=== PATIENT | female | born 1990 | race Caucasian/White ===

== ENCOUNTER → 2021-03-08 12:40 | Outpatient (BNVA) | payer OTHER, SELFPAY | PROVIDERS: Visit Provider Advanced Practice Midwife ==

== ENCOUNTER → 2021-03-15 08:50 | Outpatient (BNVA) | payer OTHER, SELFPAY | PROVIDERS: Visit Provider Advanced Practice Midwife | DX: Z30.42 Encounter for surveillance of injectable contraceptive (principal) | CPT/HCPCS: 96372; 99211 ==

== ENCOUNTER 2024-08-20 17:10 | Emergency (ER) | payer OTHER, SELFPAY ==
--- OUTSIDE RECORDS SUMMARY | 2024-08-20 17:13 | XMS_ITS | Continuity of Care Document ---
Author Organization [facility] Address [address], [address] [place] [address] Phone Care Team Providers Care Microfilm Processor Name Role Phone Unavailable Unavailable Unavailable Allergies, Adverse Reactions, Alerts Substance Reaction Status Criticality No Known Allergies Active No Inform ation Procedures Procedure Date Urine OFFICE/OUTPATIENT VISIT, [facility] Advance Directives Directive Yes / No Effective Date File Name No Information Encounters Encounter Description Practice Location Reason(s) For Visit Diagnoses Date Provider [facility], [address], [address], [place], [id number], tel:[phone] No Information 2021 No Information OFFICE/OUTPATI ENT VISIT, [facility], [address], [address], [place], [id number], tel:[phone] confirmation (chief complaint) Encounter for test, result unknown 2021 No Information Family History Family Member Type Diagnosis Age At Onset Mother Problem hypertension Payers Payer name Insurance type Covered green party ID Authoriza tion(s) No Information Social History Type Description Quantity Date Captured Comments Alcohol Use Details Unknown Caffeine Use Details Unknown Tobacco Use Status No Information Smoking Status No Information Sex Female Chief Complaint And Reason For Visit No Information History Of Present Illness Encounter Date Complaint History Of Prese nt Illness confirmation 31yo patient is present today for confirmationLMP 10/14/21OBHx: x2 - no complications.PMH; negMeds: nonesurghx: [id number]: cigarette smokerSTDhx: negNo plans to breastfeed Instructions Date Instruction Additional Infor mation No Information Assessments Type Assessment Date No Information
--- OUTSIDE RECORDS SUMMARY | 2024-08-20 18:18 | XMS_ITS | Continuity of Care Document ---
Author Organization [facility] Address [address], [address] [place] [address] Phone Care Team Providers Care Hat And Cap Parts Cutter Hand Name Role Phone Unavailable Unavailable Unavailable Allergies, Adverse Reactions, Alerts Substance Reaction Status Criticality No Known Allergies Active No Inform ation Procedures Procedure Date Urine OFFICE/OUTPATIENT VISIT, [facility] Advance Directives Directive Yes / No Effective Date File Name No Information Encounters Encounter Description Practice Location Reason(s) For Visit Diagnoses Date Provider [facility], [address], [address], [place], [id number], tel:[phone] [address] No Information 2021 No Information OFFICE/OUTPATI ENT VISIT, [facility], [address], [address], [place], [id number], tel:[phone] confirmation (chief complaint) Encounter for test, result unknown 2021 No Information Family History Family Member Type Diagnosis Age At Onset Mother Problem hypertension Payers Payer name Insurance type Covered democrat ID Authoriza tion(s) No Information Social History [...] 10/14/21OBHx: x2 - no complications.PMH; negMeds: nonesurghx: [id number]: cigarette smokerSTDhx: negNo plans to breastfeed Instructions Date Instruction Additional Infor mation No Information Assessments Type Assessment Date No Information
== END 2024-08-20 18:21 | disposition left against medical advice (07) ==
PROVIDERS: Emergency Provider Emergency Medicine
DX: H57.11 Ocular pain, right eye (principal); Z53.21 Procedure and treatment not carried out due to patient leaving prior to being seen by health care provider

== ENCOUNTER 2024-10-08 15:44 | Outpatient (REF) | payer MEDICAID, SELFPAY ==
[2024-10-08 16:03] LABS: MANUAL DIFF FLAG NO
[2024-10-08 16:53] LABS: Basophils Percent Auto 0.4 % (0-2); Eosinophils Absolute Auto 0.2 X10*3/uL (0.0-0.4); Hematocrit 37.3 % (37.0-47.0); Hemoglobin 12.6 g/dl (12.0-16.0); Imm Gran Abs Auto 0.02 X10*3/uL (0.00-0.03); Imm Gran Pct Auto 0.4 % (0.0-0.4); Lymphocytes Absolute Auto 2.2 X10*3/uL (1.2-4.9); Lymphocytes Percent Auto 43.7 % (20-40); Mean Corpuscular HGB Conc 33.8 g/dl (31.0-35.0); Mean Corpuscular Hemoglobin 32.2 pg (27.0-33.0); Mean Corpuscular Volume 95.4 fL (80.0-98.0); Mean Platelet Volume 10.9 fL (9.4-12.3); Monocytes Absolute Auto 0.7 X10*3/uL (0.1-1.2); Monocytes Percent Auto 13.2 % (2-11); Neutrophils Absolute Auto 1.9 x10*3/uL (2.0-8.3); Neutrophils Percent Auto 38.3 % (45-73); Platelet Count 167 X10*3/uL (160-400); Red Blood Count 3.91 X10*6/uL (4.20-5.50); Red Cell Distribution Width 12.8 % (11.0-16.0)
[2024-10-08 17:30] LABS: Rheumatoid Factor < 13.0 IU/mL (<15.0)
[2024-10-08 17:40] LABS: Erythrocyte Sedimentation Rate 7 MM/HR (0-20)
[2024-10-08 18:55] LABS: Alanine Aminotransferase 14 U/L (0-31); Albumin Level 4.4 g/dL (3.5-5.0); Alkaline Phosphatase 48 U/L (39-117); Anion Gap 11 (12-20); Aspartate Amino Transferase 21 U/L (5-31); Bilirubin Total 0.4 mg/dL (0.0-1.0); Blood Urea Nitrogen 16 mg/dL (9-16); Calcium 9.3 mg/dL (8.4-10.2); Carbon Dioxide 25 mmol/L (22-29); Chloride 107 mmol/L (96-108); Estimated Glomerular Filt Rate > 60; Glucose Random 85 mg/dL (60-115); Potassium 3.9 mmol/L (3.3-5.1); Sodium 139 mmol/L (135-145); TSH reflex Free T4 0.68 uIU/mL (0.32-4.0); Total Protein 7.9 g/dL (6.5-8.0)
--- OUTSIDE RECORDS SUMMARY | 2024-10-08 19:23 | XMS_ITS | Clinical Summary ---
Author Organization [facility] Address [address] [place] [address] Care Team Providers Care Peanut Roaster Name Role Phone Hal Kennedy MD Primary Care Provider Surgical History Surgery Date Site/Laterality Comments SECTION PROCEDURE: HISTORICAL DELIVERY; COMMENT: 2016, and 2018 c/s's. Medical History Medical History Date Comments Rh negative state in antepar indy period, third trimester DX:Rh negative state in ante period, third trimester Family History Medical History Relation Name Comments Asthma Brother 1 No Known Problems Brother 2 Asthma Father Hypertension Father Arthritis Mother Hypertension Mother Osteoporosis Mother Stomach cancer Other mataernal cousin Relation Name Status Comments Brother 1 Alive Brother 2 Alive Father Alive Maternal Grandfather Maternal Grandmother Mother Alive Other mataernal cousin Alive Paternal Grandfather Paternal Grandmother Social History Tobacco Use Types Packs/Day Years Used Date Smoking Tobacco: Former Smokeless Tobacco: Never Alcohol Use Standard Drinks/Week Comments Not Currently 0 (1 standard drink = 0.6 oz pur e alcohol) Sex and Gender Information Value Date Recorded Sex Assigned at Not on file Gender Identity Not on file Sexual Orientation Not on file Obstetrics History Last Filed Vital Signs Vital Sign Reading Time Taken Comments Blood Pressure 120/79 07/25/2022 1:51 PM EST Pulse 73 07/25/2022 1:51 PM EST Temperature - - Respiratory Rate - - Oxygen Saturation - - Inhaled Oxygen Concentration - - Weight 74.4 kg (164 lb) 07/25/2022 1:51 PM EST Height 160 cm (5' 3 ) 05/02/2022 1:46 PM EDT Body Mass Index 29.05 05/02/2022 1:46 PM EDT Plan of Treatment Health Maintenance Due Date Last Done Comments Hepatitis B Vaccines (1 of 3 - 19+ 3-dose series) 2011 Cervical Cancer Screening: P ap Smear 2013 Depression Screening 08/19/2022 HIV Screening 08/19/2022 Hepatitis C Screening 08/19/2022 Social Influencers of Health Screening 08/19/2022 COVID-19 Vaccine (1 - 2023-2 5 season) 2024 Influenza Vaccine (#1) 2024 2, 06/18/2017 DTaP,Tdap,and Td Vaccines (2 - Td or Tdap) 05/28/2032 05/28/2022 HIB Vaccines Aged Out No longer eligi ble based on patient's age to complete this topic HPV Vaccines Aged Out No longer eligi ble based on patient's age to complete this topic Hepatitis A Vaccines Aged Out No long er eligible based on patient's age to complete this topic IPV Vaccines Aged Out No longer eligi ble based on patient's age to complete this topic MMR Vaccines Aged Out No longer eligi ble based on patient's age to complete this topic Meningococcal ACWY Vaccine Aged Out N o longer eligible based on patient's age to complete this topic Pneumococcal Vaccine: Pediatrics (0 to 5 Years) and At-Risk Patients (6 to 64 Years) Aged Out No longer eligible b ased on patient's age to complete this topic RSV Immunization Patients Under 20 months Aged Out No longer eligible b ased on patient's age to complete this topic Varicella Vaccines Aged Out No longer eligible based on patient's age to complete this topic Care Teams Peanut Roaster Relationship Specialty Start Date End Date Hal Kennedy MD [address] [place] [address] Dr [address] DEBBIE Chawla PCP - General 09/27/22
[2024-10-17 10:34] LABS: Hu Antibody Screen, IFA Serum NEGATIVE (NEGATIVE)
== END 2024-10-08 15:45 | disposition home or self-care (01) ==
LOC: HO.LAB 15:44
PROVIDERS: PCP Internal Medicine; Visit Provider Internal Medicine
DX: Z00.01 Encounter for general adult medical examination with abnormal findings (principal); Z13.31 Encounter for screening for depression; M13.0 Polyarthritis, unspecified; R63.4 Abnormal weight loss
CPT/HCPCS: 36415; 80053; 84181; 84443; 85025; 85652; 86255; 86256; 86431

== ENCOUNTER 2025-02-04 12:14 | Outpatient (REF) | payer MEDICAID, SELFPAY ==
--- OUTSIDE RECORDS SUMMARY | 2025-02-04 12:17 | XMS_ITS | Continuity of Care Document ---
Author Organization [facility] Address [address], [address] [place] [address] Phone Care Team Providers Care Disability Hearing Officer Name Role Phone Unavailable Unavailable Unavailable Allergies, Adverse Reactions, Alerts Substance Reaction Status Criticality No Known Allergies Active No Inform ation Procedures Procedure Date Urine OFFICE/OUTPATIENT VISIT, [facility] Advance Directives Directive Yes / No Effective Date File Name No Information Encounters Encounter Description Practice Location Reason(s) For Visit Diagnoses Date Provider [facility], [address], [address], [place], [id number], tel:[phone] [place] [address] No Information 2021 No Information OFFICE/OUTPATI ENT VISIT, [facility], [address], [address], [place], [id number], tel:[phone] [place] [address] confirmation (chief complaint) Encounter for test, [...] 10/14/21OBHx: x2 - no complications.PMH; negMeds: nonesurghx: [id number]: cigarette smokerSTDhx: negNo plans to breastfeed Instructions Date Instruction Additional Infor mation No Information Assessments Type Assessment Date No Information
[2025-02-08 11:14] LABS: Anti Nuclear Antibody Screen NEGATIVE (NEGATIVE)
== END 2025-02-04 12:15 | disposition home or self-care (01) ==
LOC: HO.LAB 12:14
PROVIDERS: PCP Internal Medicine; Visit Provider Internal Medicine
DX: M13.0 Polyarthritis, unspecified (principal); R63.4 Abnormal weight loss
CPT/HCPCS: 36415; 86038

== ENCOUNTER 2025-05-05 10:02 | Outpatient (REF) | payer MEDICAID, SELFPAY ==
--- OUTSIDE RECORDS SUMMARY | 2025-05-05 10:53 | XMS_ITS | Clinical Summary ---
Author Organization [facility] Address [address] [place] [address] Care Team Providers Care Cell Builder Name Role Phone Hal Kennedy MD Primary Care Provider [phone] Surgical History Surgery Date Site/Laterality Comments SECTION [...] drink = 0.6 oz pur e alcohol) Comments Unknown Sex and Gender Information Value Date Recorded Sex Assigned at Not on file Legal Sex Female 4:33 AM EST Gender Identity Not on file Sexual Orientation [...] Cervical Cancer Screening: P ap Smear 2013 HIV Screening 08/19/2022 Hepatitis C Screening 08/19/2022 Social Influencers of Health Screening 08/19/2022 COVID-19 Vaccine (1 - 2023-2 5 season) 2024 Depression Screening 09/09/2024 Influenza Vaccine (#1) 2025 2, 06/18/2017 DTaP,Tdap,and Td Vaccines (2 - [...] patient's age to complete this topic Meningococcal B Vaccine Aged Out No l onger eligible based on patient's age to complete this topic Pneumococcal Vaccine: Pediatrics (0 to 5 Years) and At-Risk Patients (6 to 49 Years) Aged Out No longer eligible b ased on patient's age to complete this topic RSV Immunization Patients Under 20 months Aged Out No longer eligible b ased on patient's age to complete this topic Varicella Vaccines Aged Out No longer eligible based on patient's age to complete this topic Care Teams Cell Builder Relationship Specialty Start Date End Date Hal Kennedy MD [address] [place] [address] Dr [address] DEBBIE Chawla PCP - General 09/27/22
[2025-05-07 22:28] LABS: TS Negative Control Passed; TS Panel A 2; TS Panel B 1; TS Positive Control Passed; TSpotTB Negative (Negative)
== END 2025-05-05 10:03 | disposition home or self-care (01) ==
LOC: HO.LAB 10:02
PROVIDERS: PCP Internal Medicine; Visit Provider Internal Medicine
DX: Z11.1 Encounter for screening for respiratory tuberculosis (principal); R63.4 Abnormal weight loss
CPT/HCPCS: 36415; 86481

== ENCOUNTER 2025-08-01 18:17 | Emergency (ER) | payer MEDICAID, SELFPAY ==
--- NOTE | ~2025-08-01 | CT_ITS ---
CLINICAL HISTORY: right face and neck swelling CT soft tissue neck with contrast Comparison: None provided Findings: Superficial and deep edema external to right mandible. Heterogeneous localized fluid within perimandibular musculatures. Suspect complex intramuscular or perimuscular abscess. No underlying focal bony abnormality identified. Tonsils, adenoids and epiglottis are within normal limits. There is no prevertebral soft tissue swelling or fluid. Bilateral parotid and submandibular glands unremarkable. No significant adenopathy in the neck by size criteria. Airway midline without deviation or displacement. No foreign bodies are demonstrated. Visualized upper lungs and sinuses are clear. No acute bony abnormalities demonstrated. Impression: Right pre mandibular fluid and soft tissue stranding as above Heterogeneous complex fluid concerning for complex abscess No underlying bony abnormality identified This document has been electronically signed by: Gerhard Yanes MD on 08/01/2025 21:52:40
[2025-08-01 18:22] VITALS: BP 117/58; PULSE 98; RESP 18; TEMP 36.9; O2SAT 98; BMI 20.2
--- NOTE | 2025-08-01 18:23 | ED.GENADULT ---
HPI - General Adult General Chief complaint: Dental/Oral Stated complaint: Dental Pain Time Seen by Provider: 08/01/25 20:00 Source: patient, RN notes reviewed and old records reviewed Mode of arrival: ambulatory Limitations: no limitations History of Present Illness ED Provider: Leigh DURAN narrative: 34-year-old female presents for evaluation of right-sided facial and neck swelling. She reports that she has a known broken tooth in the right lower molar. This happened over a month ago. She is due to see her dentist next month for an extraction. She reports she will get this morning with significant pain and swelling to the right side of the face She is able to swallow and has no difficulty breathing pain Denies any fevers or chills Related Data Previous Rx's ?Medication ?Instructions ?Recorded medroxyprogesterone 150 mg/mL 150 mg IM [id number] #1 mL 03/08/21 intramuscular suspension (Depo-Provera) clindamycin HCl 300 mg capsule 300 mg PO TID #20 caps 08/02/25 (Cleocin HCl) oxycodone 5 mg tablet 5 mg PO Q6H PRN severe pain (scale 08/02/25 score 7-10) #12 tabs Allergies Allergy/AdvReac Type Severity Reaction Status Date / Time No Known Allergies (No Known Allergy Verified 08/01/25 18:23 Allergies*) Review of Systems Constitutional: Constitutional: Reports as per HPI, Denies chills, Denies fatigue, Denies fever(s) and Denies headache(s) ENT: Reports facial pain, Denies headache(s), Denies throat swelling, Denies tongue swelling and Denies widening between teeth Cardiovascular: Cardiovascular: Denies chest pain and Denies dyspnea Respiratory: Respiratory: Denies cough and Denies dyspnea Gastrointestinal: Gastrointestinal: Denies abdominal pain, Denies constipation and Denies vomiting Genitourinary: Genitourinary: Denies dysuria Neurologic: Denies headache(s) and Denies focal weakness Endocrine: Endocrine: Denies fatigue Allergic/Immunologic: Allergic/Immunologic: Denies throat swelling and Denies tongue swelling PMFSH Past Medical History Surgical History Hx of section Social History Social History Alcohol intake: never Patient Tobacco Use Status: Never used Tobacco Advance Directives: No Advance Directives Information Provided: No Sexual orientation: Straight/Heterosexual Gender identity: Female Physical Exam ED Vital Signs: Vital Signs - 24 hr 08/01/25 18:22 08/01/25 22:23 Temperature 98.5 F Pulse Rate 98 91 Respiratory Rate 18 18 Blood Pressure 117/58 L 113/72 Pulse Oximetry 98 98 Oxygen Delivery Method Room Air Room Air BMI result Body Mass Index 20.2 Const General: healthy appearing, comfortable, no acute distress, alert and awake Nutritional Appearance: well nourished Orientation/consciousness: patient oriented x3 HENMT Other: There is right-sided facial edema with the right side of the mandible. There was no significant fluctuance, no erythema, no open wounds. There was minimal right upper/anterior neck edema. Trachea appears midline. There was no crepitus. There was some fullness to the right lateral and lower buccal mucosa. There was no obvious abscess on palpation. No purulence. Head: Yes normocephalic and Yes atraumatic Eyes Eyelids: Yes eyelids normal Conjunctivae: conjunctivae normal Sclerae: sclerae normal Corneas: corneas normal Pupils: Equal, round and reactive pupils present EOM: EOMs intact bilaterally Neck Neck: Yes full ROM Resp Effort & Inspection: normal respiratory effort, able to speak in complete sentences and not labored Skin General skin exam: elasticity normal Neuro General: patient oriented x3 Cranial nerves: Yes Equal, round and reactive pupils present and Yes Bilaterally intact EOM present Cognition (Neuro): normal cognition Extrem Other: Moving all extremities well without any obvious deformities Course Course Course Narrative: Rapid medical examination performed in triage by Aspen Bronson PA-C: Patient is a 34 year old assigned female at presenting to the emergency department with right lower facial swelling and pain. Patient states that she has a known tooth in the right lower part of her mouth that needs to be removed but now she is having pain and significant swelling to the area. Patient states that she has a dentist appointment the first week of August.. Detailed physical exam and review of systems are deferred to the primary teacher. Labs ordered. Patient placed back in the waiting room pending room availability and results. Reevaluation(s) Reevaluation #1: The patient has no evidence of sepsis, CT scan does show questionable complex fluid collection consistent with developing abscess. Discussed with the attending, Dr Beltran who agrees it is appropriate to treat the patient with antibiotics and she may follow up with her dentist which is already scheduled for next week. She will be given strict return precautions. She does not have any trismus, she is able to swallow without any problem. There was no evidence of Mikhail's angina. No tracheal or uvula deviation. And there was no evidence of sepsis. I did discuss possible incision and drainage with the patient and she is agreeable to needle aspiration. I was able to remove a small amount of purulent material, about 2 cc. She will also be given follow up with ENT, but this seems to be a primarily dental source. Time: 00:17 Medications Administered Discontinued Medications Generic Name Dose Route Start Last Admin Trade Name Freq PRN Reason Stop Dose Admin Sodium Chloride 1,000 mls @ 999 mls/hr 08/01/25 20:15 08/01/25 21:50 Ns IV 08/01/25 21:15 Infused .Q1H1M ROBEL Infusion Clindamycin Phosphate 600 mg in 50 mls @ 100 mls/hr 08/01/25 22:03 08/01/25 23:08 Cleocin IV 08/01/25 22:32 Infused ONCE ONE Infusion Iohexol 100 ml 08/01/25 20:44 08/01/25 20:45 Iohexol 350 Mg/Ml 100 Ml Infus..Btl IV 08/01/25 20:45 60 ml ONCE ONE Administration Ketorolac Tromethamine 30 mg 08/01/25 20:12 08/01/25 20:32 Ketorolac Tromethamine 30 Mg/Ml Vial IVPUSH 08/01/25 20:13 30 mg ONCE ONE Administration Lidocaine HCl 15 ml 08/01/25 22:03 08/01/25 22:34 Lidocaine Hcl Viscous 2 % 15 Ml Solution MUCOUS MEM 08/01/25 22:04 15 ml ONCE ONE Administration Lidocaine/Epinephrine 10 ml 08/01/25 22:03 08/01/25 22:34 Lidocaine Hcl 1%/Epi 1:100,000 10 Ml Vial INFILTRATI 08/01/25 22:04 10 ml ONCE ONE Administration Morphine Sulfate 2 mg 08/01/25 22:25 08/01/25 22:33 Morphine Sulfate 4 Mg/Ml Cartridge IVPUSH 08/01/25 22:26 2 mg ONCE ONE Administration Protocol Procedures Abscess I/D Site: oral (Right mandibular) Side (if applicable): right Local Anesthetic: lidocaine 1% and with epi Amount of anesthesia used (mL): 1 Technique: needle aspiration Amount of fluid expressed (mL): 2 Sent for culture/gram staining?: No Irrigation: No Packing used?: none Complications: pain Medical Decision Making Medical Decision Making [facility] Narrative: 34-year-old female presents for evaluation of right-sided facial pain and swelling. She has a known dental fracture from a few weeks ago and is due to see her dentist next month. She reports acute pain and swelling starting this morning when she woke up. Denies any. She has no obvious abscess on exam. She has not no uvula or tracheal deviation. However given the significant facial edema we will get a CT scan of the neck soft tissue extending up to evaluate for drainable abscess. The patient does not meet sepsis criteria Differential Diagnosis Differential Diagnoses: The differential diagnosis associated with the presentation includes Soft tissue mass Dental infection Dental abscess Gingivitis Lab Data [facility] Lab Attestation statement: I reviewed the patient's lab results. Mild leukocytosis to 13.2 with a left shift. No significant anemia. Normal platelet count. No electrolyte abnormalities warranting dimension 08/01/25 18:42 08/01/25 18:42 Labs: Lab Results 08/01/25 Range/Units 18:42 WBC 13.2 H (4.8-10.8) X10*3/uL RBC 4.02 L (4.20-5.50) X10*6/uL Hgb 12.7 (12.0-16.0) g/dl Hct 38.0 (37.0-47.0) % MCV 94.5 (80.0-98.0) fL MCH 31.6 (27.0-33.0) pg MCHC 33.4 (31.0-35.0) g/dl RDW 12.0 (11.0-16.0) % Plt Count 252 D (160-400) X10*3/uL MPV 9.6 (9.4-12.3) fL Immature Gran % (Auto) 0.4 (0.0-0.4) % Neut % (Auto) 74.2 H (45-73) % Lymph % (Auto) 15.9 L (20-40) % [place] % (Auto) 8.1 (2-11) % Eos % (Auto) 1.0 (0-4) % Baso % (Auto) 0.4 (0-2) % Lymph # (Auto) 2.1 (1.2-4.9) X10*3/uL [place] # (Auto) 1.1 (0.1-1.2) X10*3/uL Eos # (Auto) 0.1 (0.0-0.4) X10*3/uL Baso # (Auto) 0.1 (0.0-0.2) X10*3/uL Abs Immat Gran (auto) 0.05 H (0.00-0.03) X10*3/uL Absolute Neuts (auto) 9.8 H (2.0-8.3) x10*3/uL Absolute Nucleated RBC 0.000 (0.0-0.012) X10*3/uL Nucleated RBC % (auto) 0.0 (0.0-0.2) /100WBC ESR 10 (0-20) MM/HR Sodium 140 (135-145) mmol/L Potassium 3.8 (3.3-5.1) mmol/L Chloride 106 (96-108) mmol/L Carbon Dioxide 26 (22-29) mmol/L Anion Gap 12 (12-20) BUN 13 (9-16) mg/dL Creatinine 0.54 (0.5-1.4) mg/dL Estim Creat Clear Calc 126.3 Estimated GFR > 60 Random Glucose 109 (60-115) mg/dL Calcium 9.5 (8.4-10.2) mg/dL Total Bilirubin 0.9 (0.0-1.0) mg/dL AST 26 (5-31) U/L ALT 18 (0-31) U/L Alkaline Phosphatase 53 (39-117) U/L C-Reactive Protein 0.13 (< or = 0.50) mg/dL Total Protein 7.9 (6.5-8.0) g/dL Albumin 4.9 (3.5-5.0) g/dL Beta HCG, Quant < 2 mIU/mL Hold Red Top See Note Discharge Plan Discharge Clinical Impression: Dental abscess Patient Disposition: Home, Self-Care Instructions: Dental Abscess (ED) Additional Instructions: Take the clindamycin 3 times daily for 1 week. Apply warm compresses every 4 hours for 10-15 minutes. Use ibuprofen/Tylenol for pain. You may use oxycodone for more severe, breakthrough pain This may make you drowsy, do not drink alcohol or drive while taking it. Prescriptions: New clindamycin HCl [Cleocin HCl] 300 mg capsule 300 mg PO TID Qty: 20 0RF oxycodone 5 mg tablet 5 mg PO Q6H PRN (Reason: severe pain (scale score 7-10)) Qty: 12 0RF Rx Instructions: Partial Fill upon patient request. No Action medroxyprogesterone [Depo-Provera] 150 mg/mL suspension 150 mg IM [id number] Qty: 1 3RF Referrals: Yang Ely [Physician, Ear, Nose, Throat] Referral Note: mandibular abscess Print Language: Swedish
[2025-08-01 18:47] LABS: MANUAL DIFF FLAG NO
[2025-08-01 18:52] LABS: Hematocrit 38.0 % (37.0-47.0); Hemoglobin 12.7 g/dl (12.0-16.0); Imm Gran Abs Auto 0.05 X10*3/uL (0.00-0.03); Imm Gran Pct Auto 0.4 % (0.0-0.4); Lymphocytes Absolute Auto 2.1 X10*3/uL (1.2-4.9); Mean Corpuscular HGB Conc 33.4 g/dl (31.0-35.0); Mean Corpuscular Hemoglobin 31.6 pg (27.0-33.0); Mean Corpuscular Volume 94.5 fL (80.0-98.0); NRBC Abs Auto 0.000 X10*3/uL (0.0-0.012); NRBC Pct Auto 0.0 /100WBC (0.0-0.2); Platelet Count 252 X10*3/uL (160-400); Red Blood Count 4.02 X10*6/uL (4.20-5.50); White Blood Count 13.2 X10*3/uL (4.8-10.8)
[2025-08-01 19:12] LABS: Alanine Aminotransferase 18 U/L (0-31); Albumin Level 4.9 g/dL (3.5-5.0); Alkaline Phosphatase 53 U/L (39-117); Anion Gap 12 (12-20); Aspartate Amino Transferase 26 U/L (5-31); Blood Urea Nitrogen 13 mg/dL (9-16); Calcium 9.5 mg/dL (8.4-10.2); Carbon Dioxide 26 mmol/L (22-29); Chloride 106 mmol/L (96-108); Creatinine Clr Calc Pharmacy 126.3; Estimated Glomerular Filt Rate > 60; Potassium 3.8 mmol/L (3.3-5.1); Sodium 140 mmol/L (135-145); Total Protein 7.9 g/dL (6.5-8.0)
[2025-08-01 19:29] LABS: Erythrocyte Sedimentation Rate 10 MM/HR (0-20)
--- NOTE | 2025-08-01 20:00 | HO.NURTONUR ---
bilateral lower ext cellulitis. BKA right side. pt was hospitalized in [place] last month or so. Apparently has not had any med care for past 3 weeks. Methadone use. Has been buying it off street per prior RN. Had dilaudid and stated it helped a little. *U/S IV right lfa. Hard stick. Able to call for all needs. unable to stand up
[2025-08-01] MEDS: iohexoL 350 MG/ML 100 ML INFUS..BTL IV (20:45)
[2025-08-01 22:23] VITALS: BP 113/72; PULSE 91; RESP 18; O2SAT 98
[2025-08-01] MEDS: Lidocaine HCl Viscous 2 % 15 ML SOLUTION MUCOUS MEM (22:34)
[2025-08-01] MEDS: Lidocaine HCl 1%/Epi 1:100,000 10 ML VIAL INFILTRATI (22:34)
[2025-08-02 00:30] VITALS: BP 113/72; PULSE 91; RESP 18; TEMP 36.8; O2SAT 98
== END 2025-08-02 01:25 | disposition home or self-care (01) ==
PROVIDERS: Physician Assistant Medical; Emergency Provider Emergency Medicine; PCP Internal Medicine
DX: K04.7 Periapical abscess without sinus (principal); K08.89 Other specified disorders of teeth and supporting structures; K03.81 Cracked tooth; R22.9 Localized swelling, mass and lump, unspecified
CPT/HCPCS: 36415; 41800; 70491; 80053; 84702; 85025; 85652; 86140; 96361; 96365; 96375; 96376; 99284; 99285; J0736; J1885; J2004; J2270; Q9967

== ENCOUNTER → 2025-08-01 20:12 | Outpatient (BNV) | payer MEDICAID, SELFPAY | PROVIDERS: Emergency Provider Emergency Medicine; PCP Internal Medicine; Visit Provider Radiology Diagnostic Radiology | DX: R22.1 Localized swelling, mass and lump, neck (principal); R22.0 Localized swelling, mass and lump, head | CPT/HCPCS: 70491 ==

== ENCOUNTER 2025-08-03 15:59 | Emergency (ER) | payer MEDICAID, SELFPAY ==
--- NOTE | ~2025-08-03 | XR_ITS ---
EXAMINATION: XR CHEST CLINICAL INFORMATION: pain after lifting COMPARISON: 01/11/2019. TECHNIQUE: 2 views of the chest were obtained. FINDINGS: The cardiac, hilar, and mediastinal contours are normal. The lungs are clear bilaterally. There is no pneumothorax or pleural effusion. There is no focal osseous or soft tissue abnormality. XR/XR chest 2V IMPRESSION: No active pulmonary disease. Electronically signed by: Jeff Tierney MD 08/03/2025 04:30 PM [email or web address]
--- NOTE | 2025-08-03 16:00 | ECG_ITS ---
Test Reason : chest pain Blood Pressure : */* mmHG Vent. Rate : 75 BPM Atrial Rate : 75 BPM P-R Int : 138 ms QRS Dur : 84 ms QT Int : 388 ms P-R-T Axes : 69 66 29 degrees QTcB Int : 433 ms Normal sinus rhythm Normal ECG When compared with ECG of 22-Jan-2019 14:50, QT has shortened Referred By: Thu Bradford Electronically Signed By: Bhargav Faye
--- NOTE | 2025-08-03 16:14 | ED.GENADULT ---
HPI - General Adult General Chief complaint: Chest Pain Stated complaint: Chest pain Time Seen by Provider: 08/03/25 17:34 History of Present Illness ED Provider: Margareth DURAN narrative: The patient is a 34-year-old female who was seen here 2 days ago for pain and swelling in the right side of her jaw. She was felt to have a dental infection. She had a CT scan of the soft tissues of the neck that showed inflammation and edema external to the right mandible with a heterogeneous localized fluid within the perimandibular musculatures. Suspicion was for complex intramuscular or perimuscular abscess. She was given 600 mg of IV clindamycin. Apparently 2 cc of pus were aspirated from the gutter of the vestibule on the right side of the mouth. The patient was discharged with a prescription for clindamycin 300 mg t.i.d.. Also a prescription for oxycodone. This morning the patient developed chest pain that she says is worse with movement and with taking a deep breath. The pain is intermittent. She says that it is worse when she picks up her child. She does not feel short of breath with this pain. No pain or swelling in her legs. She also feels that the swelling on the right side of her jaw has gotten slightly worse. Related Data Previous Rx's ?Medication ?Instructions ?Recorded medroxyprogesterone 150 mg/mL 150 mg IM [id number] #1 mL 03/08/21 intramuscular suspension (Depo-Provera) clindamycin HCl 300 mg capsule 300 mg PO TID #20 caps 08/02/25 (Cleocin HCl) oxycodone 5 mg tablet 5 mg PO Q6H PRN severe pain (scale 08/02/25 score 7-10) #12 tabs acetaminophen 500 mg capsule 1,000 mg (2 x 500 mg) PO Q8H PRN 08/03/25 fever or pain #14 caps clindamycin HCl 300 mg capsule 600 mg (2 x 300 mg) PO TID 8 days 08/03/25 (Cleocin HCl) #48 caps ibuprofen 400 mg tablet 400 mg PO Q6H PRN pain #14 tabs 08/03/25 oxycodone 5 mg tablet 5 mg PO Q6H PRN pain #14 tabs 08/03/25 Allergies Allergy/AdvReac Type Severity Reaction Status Date / Time No Known Allergies (No Known Allergy Verified 08/03/25 16:17 Allergies*) Review of Systems Review of Systems: Yes all other systems are reviewed and are negative [facility] Past Medical History Surgical History Hx of section Social History Social History Alcohol intake: never Patient Tobacco Use Status: Never used Tobacco Advance Directives: No Advance Directives Information Provided: No Patient : No Sexual orientation: Straight/Heterosexual Gender identity: Female Physical Exam ED Vital Signs: Vital Signs - 24 hr 08/03/25 16:15 08/03/25 18:00 08/03/25 20:13 Temperature 98.2 F 98.2 F 98.3 F Pulse Rate 78 82 77 Respiratory Rate 16 16 21 H Blood Pressure 109/73 110/62 93/58 L Pulse Oximetry 97 98 97 Oxygen Delivery Method Room Air Room Air Room Air 08/03/25 20:35 Temperature 98.3 F Pulse Rate 77 Respiratory Rate 21 H Blood Pressure 93/58 L Pulse Oximetry 97 Oxygen Delivery Method Room Air BMI result Body Mass Index 19.9 Const Other: The patient is a 34-year-old female who was awake and alert. She has obvious facial swelling to the right side of her jaw. There is some mild erythema to the skin overlying. Although she has a obvious facial swelling she does not seem in overt distress or acutely toxic in any way. Orientation/consciousness: patient oriented x3 HENMT Other: There is soft tissue swelling to the right side of the face at the level of the right mandible. There was no significant trismus. The floor of the mouth is not elevated. The patient has a partially broken tooth #30. At the floor of the vestibule opposite this tooth there is tenderness and when I apply pressure there is some extrusion of pus at the gingiva at the base of the tooth. Eyes Other: Pupils are round equal, conjunctivae are clear, extraocular movements intact Neck Other: The swelling on the right side of the jaw extends somewhat into the region of the submandibular glands but I do not feel any palpable cervical nodes. She seems to be able to move her neck easily. Resp Effort & Inspection: normal respiratory effort Auscultation: clear to auscultation bilaterally Cardio Rate: regular rate Rhythm: regular rhythm Heart sounds: S1 normal heart sound present and S2 normal heart sound present Skin Other: There is soft tissue swelling to the skin of the face over the right side of the jaw. There is some slight erythematous discoloration to the skin but I do not think it is a calin cellulitis. Elsewhere the skin is normal. Neuro General: patient oriented x3, moves all extremities, no focal motor deficits and CN's II-XI intact bilaterally Extrem Other: There is no calf swelling or tenderness. No asymmetry. No peripheral edema. Course Course Course Narrative: This is a rapid medical exam performed by Charu Bradford NP: Additional HPI, ROS, PE not included below will be deferred to primary provider. Patient is a 34y/o F presenting to the ED with complaint of headache, ear pain and chest pain after lifting her child. Currently on abx for a dental infection, has R sided facial swelling. States unable to eat, difficulty swallowing. Plan: labs, EKG Medications Administered Discontinued Medications Generic Name Dose Route Start Last Admin Trade Name Freq PRN Reason Stop Dose Admin Sodium Chloride 1,000 mls @ 999 mls/hr 08/03/25 18:00 08/03/25 19:17 Ns IV 08/03/25 19:00 Infused .Q1H1M ROBEL Infusion Clindamycin Phosphate 900 mg in 50 mls @ 50 mls/hr 08/03/25 17:56 08/03/25 19:17 Cleocin IV 08/03/25 18:55 Infused ONCE ONE Infusion Acetaminophen 1,000 mg in 100 mls @ 400 mls/hr 08/03/25 17:56 08/03/25 18:44 Ofirmev IV 08/03/25 18:10 Infused ONCE ONE Infusion Ketorolac Tromethamine 15 mg 08/03/25 17:56 08/03/25 18:10 Ketorolac Tromethamine 15 Mg/Ml Vial IVPUSH 08/03/25 17:57 15 mg ONCE ONE Administration Lidocaine/Epinephrine 10 ml 08/03/25 18:58 08/03/25 19:04 Lidocaine Hcl 1%/Epi 1:100,000 10 Ml Vial INFILTRATI 08/03/25 18:59 10 ml ONCE ONE Administration Medical Decision Making Medical Decision Making MDM Narrative: The patient is a 34-year-old female who was seen here 2 days ago for a dental infection on the right jaw. This seems to be because of a broken tooth on the right jaw, tooth #30. Apparently some pus was aspirated from the floor of the vestibule at the base of this tooth 2 days ago. The patient was put on clindamycin 300 mg t.i.d.. The patient returns today with a complaint of some chest pain that I do not think is particularly alarming. It seems to be very positional. It is not associated with shortness of breath. She is PERC negative (she has not been on an any hormonal control for a long time). To me the primary issue was that she still has significant right-sided pain and swelling. To this end she was given an IV dose of clindamycin, 900 mg. She was also given IV ketorolac and acetaminophen. Additionally it was apparent that pus was emerging from the gingiva with pressure on this facial swelling. I therefore attempted an additional attempt at needle aspiration and incision and drainage of the tender area at the floor of the vestibule. Unfortunately I was not really able to release a significant additional amount of pus. I applied some topical anesthetic to the mucosa at the floor of the vestibule. I then injected a small amount of 1% lidocaine with epinephrine. I then passed an 18 gauge needle through the mucosa and aspirated a tiny amount of pus. I then made an incision with a 11. Blade but did not release any significant additional pus. My overall impression is that the patient probably requires higher dose clindamycin. After receiving the 900 mg of IV clindamycin in the emergency room she will be given a prescription to increase her current dose from 300 mg t.i.d. to 600 mg t.i.d.. Additionally I have written a prescription for some additional oxycodone. Additionally the patient is advised to use warm compresses to the jaw and to contact her dentist in the morning. She should return if worse. Lab Data 08/03/25 18:07 08/03/25 18:07 Labs: Lab Results 08/03/25 Range/Units 18:07 WBC 10.3 (4.8-10.8) X10*3/uL RBC 3.54 L (4.20-5.50) X10*6/uL Hgb 11.2 L (12.0-16.0) g/dl Hct 33.9 L (37.0-47.0) % MCV 95.8 (80.0-98.0) fL MCH 31.6 (27.0-33.0) pg MCHC 33.0 (31.0-35.0) g/dl RDW 11.9 (11.0-16.0) % Plt Count 214 (160-400) X10*3/uL MPV 9.9 (9.4-12.3) fL Immature Gran % (Auto) 0.3 (0.0-0.4) % Neut % (Auto) 72.8 (45-73) % Lymph % (Auto) 16.6 L (20-40) % [place] % (Auto) 8.2 (2-11) % Eos % (Auto) 1.7 (0-4) % Baso % (Auto) 0.4 (0-2) % Lymph # (Auto) 1.7 (1.2-4.9) X10*3/uL [place] # (Auto) 0.8 (0.1-1.2) X10*3/uL Eos # (Auto) 0.2 (0.0-0.4) X10*3/uL Baso # (Auto) 0.0 (0.0-0.2) X10*3/uL Abs Immat Gran (auto) 0.03 (0.00-0.03) X10*3/uL Absolute Neuts (auto) 7.5 (2.0-8.3) x10*3/uL Absolute Nucleated RBC 0.000 (0.0-0.012) X10*3/uL Nucleated RBC % (auto) 0.0 (0.0-0.2) /100WBC Sodium 140 (135-145) mmol/L Potassium 3.4 (3.3-5.1) mmol/L Chloride 107 (96-108) mmol/L Carbon Dioxide 24 (22-29) mmol/L Anion Gap 12 (12-20) BUN 8 L (9-16) mg/dL Creatinine 0.48 L (0.5-1.4) mg/dL Estim Creat Clear Calc 139.9 Estimated GFR > 60 Random Glucose 88 (60-115) mg/dL Calcium 9.0 (8.4-10.2) mg/dL Total Bilirubin 0.8 (0.0-1.0) mg/dL AST 20 (5-31) U/L ALT 8 (0-31) U/L Alkaline Phosphatase 50 (39-117) U/L C-Reactive Protein 10.33 H (< or = 0.50) mg/dL Total Protein 7.3 (6.5-8.0) g/dL Albumin 4.3 (3.5-5.0) g/dL Discharge Plan Discharge Clinical Impression: Dental infection Patient Disposition: Home, Self-Care Instructions: Dental Abscess (ED) Additional Instructions: At this point I think it would be reasonable for you to increase your dosing of clindamycin to double what you are currently taking. I have sent a new prescription for the higher dose of the clindamycin to your pharmacy. Please pick this up in the morning. Please use your current clindamycin to take 600 mg at 02:30 (8 hours from the time you received your IV dose here in the emergency room), and then continue the higher dose at 3 times a day, approximately every 8 hours. In addition please use warm compresses to your chin and the side of your face. This should help increased blood flow to the area of infection and this should help the infection improve. Please contact your dentist in the morning for additional advice. Also stay in touch with your primary care doctor for additional questions as needed. Return to the emergency room if significantly worse. Prescriptions: New ibuprofen 400 mg tablet 400 mg PO Q6H PRN (Reason: pain) Qty: 14 0RF acetaminophen 500 mg capsule 1,000 mg PO Q8H PRN (Reason: fever or pain) Qty: 14 0RF clindamycin HCl [Cleocin HCl] 300 mg capsule 600 mg PO TID 8 Days Qty: 48 0RF oxycodone 5 mg tablet 5 mg PO Q6H PRN (Reason: pain) Qty: 14 0RF Rx Instructions: Partial Fill upon patient request. No Action clindamycin HCl [Cleocin HCl] 300 mg capsule 300 mg PO TID Qty: 20 0RF oxycodone 5 mg tablet 5 mg PO Q6H PRN (Reason: severe pain (scale score 7-10)) Qty: 12 0RF Rx Instructions: Partial Fill upon patient request. medroxyprogesterone [Depo-Provera] 150 mg/mL suspension 150 mg IM [id number] Qty: 1 3RF Referrals: Daniella Paredes MD [Primary Care Provider, Internal Medicine] Interventions: ED Discharge Assessment Last Done: 08/03/25 20:35 Discharge Date/Time: 08/03/25 20:43 Print Language: [place]
[2025-08-03 16:15] VITALS: BP 109/73; PULSE 78; RESP 16; TEMP 36.8; O2SAT 97; BMI 19.9
[2025-08-03 18:00] VITALS: BP 110/62; PULSE 82; RESP 16; TEMP 36.8; O2SAT 98
[2025-08-03 18:12] LABS: MANUAL DIFF FLAG NO
[2025-08-03 18:14] LABS: Hematocrit 33.9 % (37.0-47.0); Hemoglobin 11.2 g/dl (12.0-16.0); Imm Gran Abs Auto 0.03 X10*3/uL (0.00-0.03); Imm Gran Pct Auto 0.3 % (0.0-0.4); Lymphocytes Absolute Auto 1.7 X10*3/uL (1.2-4.9); Mean Corpuscular HGB Conc 33.0 g/dl (31.0-35.0); Mean Corpuscular Hemoglobin 31.6 pg (27.0-33.0); Mean Corpuscular Volume 95.8 fL (80.0-98.0); NRBC Abs Auto 0.000 X10*3/uL (0.0-0.012); NRBC Pct Auto 0.0 /100WBC (0.0-0.2); Platelet Count 214 X10*3/uL (160-400); Red Blood Count 3.54 X10*6/uL (4.20-5.50); White Blood Count 10.3 X10*3/uL (4.8-10.8)
[2025-08-03 18:28] LABS: Alanine Aminotransferase 8 U/L (0-31); Albumin Level 4.3 g/dL (3.5-5.0); Alkaline Phosphatase 50 U/L (39-117); Anion Gap 12 (12-20); Aspartate Amino Transferase 20 U/L (5-31); Blood Urea Nitrogen 8 mg/dL (9-16); Calcium 9.0 mg/dL (8.4-10.2); Carbon Dioxide 24 mmol/L (22-29); Chloride 107 mmol/L (96-108); Creatinine Clr Calc Pharmacy 139.9; Estimated Glomerular Filt Rate > 60; Potassium 3.4 mmol/L (3.3-5.1); Sodium 140 mmol/L (135-145); Total Protein 7.3 g/dL (6.5-8.0)
[2025-08-03] MEDS: Lidocaine HCl 1%/Epi 1:100,000 10 ML VIAL INFILTRATI (19:04)
--- OUTSIDE RECORDS SUMMARY | 2025-08-03 19:40 | XMS_ITS | Clinical Summary ---
Author Organization [facility] Address [address] [place] [address] Care Team Providers Care Concrete Floater Name Role Phone Hal Kennedy MD Primary [...] Cervical Cancer Screening: P ap Smear 2013 HPV Vaccines (1 - 3-dose SCD M series) 2019 HIV Screening 08/19/2022 Hepatitis C Screening 08/19/2022 Social Influencers of Health Screening 08/19/2022 Depression Screening 09/09/2024 COVID-19 Vaccine (1 - 2024-2 6 season) 2025 Influenza Vaccine (#1) 2025 2, 06/18/2017 DTaP,Tdap,and Td Vaccines (2 - Td or Tdap) 05/28/2032 05/28/2022 RSV Immunization Adult Patients (1 - 1-dose 75+ series) 2067 HIB Vaccines Aged Out No longer eligi [...] age to complete this topic Care Teams Concrete Floater Relationship Specialty Start Date End Date Hal Kennedy MD [address] [place] [address] Dr [address] [place] PCP - General 09/27/22
[2025-08-03 20:13] VITALS: BP 93/58; PULSE 77; RESP 21; TEMP 36.8; O2SAT 97
--- NOTE | 2025-08-03 20:19 | PC.NURSE ---
pt requesting pain medication, 04/18 pain. Provider aware, awaiting new orders.
[2025-08-03 20:35] VITALS: BP 93/58; PULSE 77; RESP 21; TEMP 36.8; O2SAT 97
== END 2025-08-03 20:43 | disposition home or self-care (01) ==
PROVIDERS: Registered Nurse Emergency; Emergency Provider Emergency Medicine; PCP Internal Medicine
DX: K04.7 Periapical abscess without sinus (principal); R07.9 Chest pain, unspecified
CPT/HCPCS: 36415; 71046; 80053; 85025; 86140; 93005; 96365; 96367; 96375; 99284; 99285; J0131; J0736; J1885; J2004

== ENCOUNTER → 2025-08-03 16:00 | Outpatient (BNV) | payer MEDICAID, SELFPAY | PROVIDERS: Emergency Provider Emergency Medicine; PCP Internal Medicine; Visit Provider Internal Medicine Cardiovascular Disease | DX: R07.9 Chest pain, unspecified (principal) | CPT/HCPCS: 93010 ==

== ENCOUNTER → 2025-08-03 16:16 | Outpatient (BNV) | payer MEDICAID, SELFPAY | PROVIDERS: PCP Internal Medicine; Visit Provider Radiology Diagnostic Radiology | DX: R07.9 Chest pain, unspecified (principal); X50.0XXA Overexertion from strenuous movement or load, initial encounter | CPT/HCPCS: 71046 ==